=== PATIENT | female | born 1980 | race Caucasian/White ===

== ENCOUNTER 2017-07-05 14:53 | Emergency (ER) | payer OTHER | END 2017-07-05 19:07 | disposition left against medical advice (07) | LOC: EME 14:53 | DX: Z00.8 Encounter for other general examination (principal); Z53.21 Procedure and treatment not carried out due to patient leaving prior to being seen by health care provider ==

== ENCOUNTER 2017-07-14 13:34 | Emergency (ER) | payer OTHER ==
[~2017-07-14] VITALS: Ht 162.6 cm; Wt 66.4 kg
[2017-07-14 14:19] LABS: HEMATOCRIT 38.2 % (36.0-46.0); MCH 32.2 PG (29.0-34.0); MCV 97.7 FL (83-99); MEAN PLAT.VOLUME 11.8 uM^3 (9.5-12.4); PLATELET COUNT 193 K/uL (156-360); RBC DIS.WIDTH-CV 13.3 % (11.8-14.6); RBC DIS.WIDTH-SD 47.6 % (39-53); RED BLOOD COUNT 3.91 M/uL (3.80-5.20); WHITE BLOOD COUNT 8.8 K/uL (4.1-10.2)
[2017-07-14 14:31] LABS: CHLORIDE 109 mEq/L (99-109); POTASSIUM 5.5 mEq/L (3.7-5.4); SODIUM 138 mEq/L (136-147)
[2017-07-14 14:33] LABS: GLUCOSE 189 mg/dL (70-99)
[2017-07-14 14:35] LABS: ANION GAP 15 MEQ/L (2-14)
[2017-07-14 14:37] LABS: GFR ESTIMATE (CALCULATED) 10 mL/min/
[2017-07-14 14:38] LABS: UREA NITROGEN (BUN) 43 mg/dL (9-23)
[2017-07-14 14:45] LABS: QUANTITATIVE HCG < 4.0 MIU/ML
[2017-07-14 16:33] VITALS: BP 180/95
[2017-07-15 09:28] LABS: AHBS INDEX 2.53; HEPATITIS B SURFACE ANTIBODY Nonreactive
== END 2017-07-14 16:36 | disposition home or self-care (01) ==
LOC: EME 13:34
PROVIDERS: Internal Medicine
DX: I12.9 Hypertensive chronic kidney disease with stage 1 through stage 4 chronic kidney disease, or unspecified chronic kidney disease (principal); N18.9 Chronic kidney disease, unspecified; Z99.2 Dependence on renal dialysis; I25.2 Old myocardial infarction; F32.9 Major depressive disorder, single episode, unspecified; F17.200 Nicotine dependence, unspecified, uncomplicated
CPT/HCPCS: 80048; 84702; 85027; 86706; 87340; 99281; 99282

== ENCOUNTER 2017-09-02 14:59 | Day surgery (SDC) | payer OTHER ==
[2017-09-02] MEDS ORDERED: LEVEMIR FL100 UNIT/1 SC (15:29)
[2017-09-02] MEDS ORDERED: NOVOLOG PE100 UNITS/ SC (15:59)
[2017-09-02] MEDS ORDERED: LABETALOL HCL200 MG PO (16:00)
[2017-09-02] MEDS ORDERED: NIFEDIPINE ER90 MG PO (16:00)
[2017-09-02] MEDS ORDERED: HEARTBURN RELIE75 MG PO (16:02)
[2017-09-02 16:07] LABS: POINT-OF-CARE METER ID UU13113696
[2017-09-02 17:16] LABS: METH RESISTANT S AUREUS PCR NEGATIVE (NEGATIVE)
[2017-09-02 17:21] LABS: PROBE CHECK PASS; SPECIMEN PROCESSING CONTROL PASS
== END 2017-09-02 19:30 | disposition home or self-care (01) ==
LOC: CATH 14:59
PROVIDERS: Surgery
DX: T82.868A Thrombosis due to vascular prosthetic devices, implants and grafts, initial encounter (principal); N18.6 End stage renal disease; Z99.2 Dependence on renal dialysis
CPT/HCPCS: 82948; 87641; C1725; C1757; C1769; C1894; C2628; J0690; J1644; J2250; J3010; S0020

== ENCOUNTER 2017-10-02 10:51 | Day surgery (SDC) | payer OTHER ==
[~2017-10-02 10:51] MED LIST: HEARTBURN RELIE75 MG PO; LABETALOL HCL200 MG PO; LEVEMIR FL100 UNIT/1 SC; NIFEDIPINE ER90 MG PO; NOVOLOG PE100 UNITS/ SC
[2017-10-02 12:21] VITALS: BP 115/67
[2017-10-02 12:27] LABS: BASOPHIL (%) 0.8 % (0-1); BASOPHIL COUNT 0.1 K/uL (0-0.1); EOSINOPHIL (%) 2.2 % (0-5); EOSINOPHIL COUNT 0.2 K/uL (0-0.3); HEMATOCRIT 34.6 % (36.0-46.0); HEMOGLOBIN 11.5 G/DL (11.9-15.5); IMMATURE GRANULOCYTE (%) 0.8 % (0.0-0.7); LYMPHOCYTE (%) 16.4 % (15-42); LYMPHOCYTE COUNT 1.8 K/uL (1.0-2.8); MCH 32.3 PG (29.0-34.0); MCHC 33.2 G/DL (30.0-36.0); MCV 97.2 FL (83-99); MONOCYTE (%) 5.1 % (3-12); MONOCYTE COUNT 0.5 K/uL (0-0.8); NEUTROPHIL (%) 74.7 % (45-76); PLATELET COUNT 216 K/uL (156-360); RBC DIS.WIDTH-CV 12.9 % (11.8-14.6); RBC DIS.WIDTH-SD 46.3 % (39-53); RED BLOOD COUNT 3.56 M/uL (3.80-5.20); WHITE BLOOD COUNT 10.7 K/uL (4.1-10.2)
[2017-10-02 12:49] LABS: CHLORIDE 96 MEQ/L (99-109); CREATININE 6.7 MG/DL (0.6-1.3); GFR ESTIMATE (CALCULATED) 7 mL/min/; GLUCOSE 223 mg/dL (70-99); POTASSIUM 4.8 MEQ/L (3.7-5.4); SODIUM 134 MEQ/L (136-147); UREA NITROGEN (BUN) 57 mg/dL (9-23)
[2017-10-02 13:18] LABS: QUANTITATIVE HCG < 4.0 MIU/ML
[2017-10-02] MEDS ORDERED: NORCO 5/3251 TABLET PO (18:44)
[2017-10-02 20:15] VITALS: BP 145/68
[2017-10-03 00:10] VITALS: BP 154/78
[2017-10-03 05:18] VITALS: BP 121/57
[2017-10-03 07:15] VITALS: BP 135/65
[2017-10-03 11:10] VITALS: BP 144/64
== END 2017-10-03 13:13 | disposition home or self-care (01) ==
LOC: SDC 10:51 → 2SOUTH 11:00 → SDC 11:00 → ENRESERV 11:37 → 2SOUTH 11:40 → 2EASTP 11:40
PROVIDERS: Surgery
PROC: 057Y3DZ Dilation of Upper Vein with Intraluminal Device, Percutaneous Approach (ICD-10-PCS; principal; 2017-10-02)
PROC: 05HY33Z Insertion of Infusion Device into Upper Vein, Percutaneous Approach (ICD-10-PCS; principal; 2017-10-02)
PROC: 05CY0ZZ Extirpation of Matter from Upper Vein, Open Approach (ICD-10-PCS; principal; 2017-10-02)
PROC: B51W1ZZ Fluoroscopy of Dialysis Shunt/Fistula using Low Osmolar Contrast (ICD-10-PCS; principal; 2017-10-02)
PROC: 3E03317 Introduction of Other Thrombolytic into Peripheral Vein, Percutaneous Approach (ICD-10-PCS; principal; 2017-10-02)
DX: T82.868A Thrombosis due to vascular prosthetic devices, implants and grafts, initial encounter (principal); I12.0 Hypertensive chronic kidney disease with stage 5 chronic kidney disease or end stage renal disease; E11.22 Type 2 diabetes mellitus with diabetic chronic kidney disease; F17.200 Nicotine dependence, unspecified, uncomplicated; N18.6 End stage renal disease; Z99.2 Dependence on renal dialysis; Z79.4 Long term (current) use of insulin
CPT/HCPCS: 80048; 82948; 84702; 85025; C1725; C1757; C1769; C1894; C2628; G0378; J0690; J1170; J1644; J2250; J2405; J3010; J7040

== ENCOUNTER 2017-10-12 10:24 | Inpatient (IN) | payer OTHER ==
[~2017-10-12] VITALS: Ht 162.6 cm; Wt 65.8 kg
[~2017-10-12 10:24] MED LIST changes: +NORCO 5/3251 TABLET PO
[2017-10-12] MEDS ORDERED: PERCOCET 5/31 TABLET PO (19:24)
[2017-10-13] VITALS (16 sets, daily range): BP systolic 101–244; BP diastolic 53–110
[2017-10-13 09:27] LABS: HEMATOCRIT 35.7 % (36.0-46.0); HEMOGLOBIN 11.8 G/DL (11.9-15.5); MCH 32.6 PG (29.0-34.0); MCHC 33.1 G/DL (30.0-36.0); MCV 98.6 FL (83-99); PLATELET COUNT 261 K/uL (156-360); RBC DIS.WIDTH-SD 46.9 % (39-53); RED BLOOD COUNT 3.62 M/uL (3.80-5.20); WHITE BLOOD COUNT 17.1 K/uL (4.1-10.2)
[2017-10-13 09:36] LABS: ALBUMIN 4.4 g/dL (3.2-4.8); CHLORIDE 105 mEq/L (99-109); SODIUM 137 mEq/L (136-147)
[2017-10-13 09:39] LABS: GLUCOSE 229 mg/dL (70-99)
[2017-10-13 09:41] LABS: TOTAL BILIRUBIN 0.4 mg/dL (0.0-1.0)
[2017-10-13 09:42] LABS: ALKALINE PHOSPHATASE 104 IU/L (3-129); GFR ESTIMATE (CALCULATED) 7 mL/min/
[2017-10-13 09:43] LABS: UREA NITROGEN (BUN) 48 mg/dL (9-23)
[2017-10-13 09:44] LABS: AST (GOT) 13 IU/L (2-34)
[2017-10-13 09:45] LABS: ALT (GPT) < 3 IU/L (3-49)
[2017-10-13 09:49] LABS: TROP-I INTERPRETATION NEGATIVE; TROPONIN-I 0.02 ng/mL (0.0-0.30)
[2017-10-14 03:25] VITALS: BP 93/53
[2017-10-14 07:30] VITALS: BP 95/86
[2017-10-14 11:05] VITALS: BP 92/53
[2017-10-14 15:38] LABS: HEMATOCRIT 37.9 % (36.0-46.0); HEMOGLOBIN 12.2 G/DL (11.9-15.5); MCH 31.8 PG (29.0-34.0); MCHC 32.2 G/DL (30.0-36.0); MCV 98.7 FL (83-99); PLATELET COUNT 298 K/uL (156-360); RBC DIS.WIDTH-SD 46.6 % (39-53); RED BLOOD COUNT 3.84 M/uL (3.80-5.20); WHITE BLOOD COUNT 10.3 K/uL (4.1-10.2)
[2017-10-14 15:54] VITALS: BP 121/58
[2017-10-14 21:43] LABS: APPEARANCE CLOUDY ((CLEAR)); BILIRUBIN NEGATIVE; BLOOD SMALL; COLOR AMBER ((YELLOW)); GLUCOSE (STRIP) >=500; KETONES NEGATIVE; LEUKOCYTES SMALL; NITRITE NEGATIVE; PROTEIN (STRIP) 100; SPECIFIC GRAVITY 1.021 (1.000-1.030); UROBILINOGEN 0.2 MG/DL (0.2-1.0)
[2017-10-14 22:19] LABS: EPITHELIAL CELLS 3+ /HPF; MUCUS NONE SEEN /LPF; RED BLOOD CELLS 0-5 /HPF (0-5)
[2017-10-14 22:20] LABS: BACTERIA 2+ /HPF; HYALINE CASTS 0-5 /LPF; UCUL ADDED? YES
[2017-10-15 00:07] VITALS: BP 95/55
[2017-10-15 07:02] LABS: BASOPHIL (%) 0.7 % (0-1); BASOPHIL COUNT 0.1 K/uL (0-0.1); EOSINOPHIL COUNT 0.2 K/uL (0-0.3); HEMOGLOBIN 11.5 G/DL (11.9-15.5); IMMATURE GRANULOCYTE (%) 0.4 % (0.0-0.7); LYMPHOCYTE (%) 24.2 % (15-42); LYMPHOCYTE COUNT 2.8 K/uL (1.0-2.8); MCH 31.5 PG (29.0-34.0); MCHC 31.9 G/DL (30.0-36.0); MCV 98.6 FL (83-99); MONOCYTE (%) 5.8 % (3-12); MONOCYTE COUNT 0.7 K/uL (0-0.8); NEUTROPHIL (%) 66.9 % (45-76); NEUTROPHIL COUNT 7.8 K/uL (1.8-6.4); PLATELET COUNT 248 K/uL (156-360); RBC DIS.WIDTH-CV 12.4 % (11.8-14.6); RBC DIS.WIDTH-SD 45.8 % (39-53); RED BLOOD COUNT 3.65 M/uL (3.80-5.20); WHITE BLOOD COUNT 11.7 K/uL (4.1-10.2)
[2017-10-15 07:15] VITALS: BP 137/63
[2017-10-15 07:33] LABS: CHLORIDE 92 MEQ/L (99-109); GFR ESTIMATE (CALCULATED) 7 mL/min/; MAGNESIUM 2.1 mg/dl (1.3-2.7); PHOSPHORUS 6.3 mg/dL (2.5-4.9); POTASSIUM 4.4 MEQ/L (3.7-5.4); SODIUM 136 MEQ/L (136-147); UREA NITROGEN (BUN) 39 mg/dL (9-23)
[2017-10-15 07:41] LABS: GLUCOSE 111 mg/dL (70-99)
== END 2017-10-15 13:50 | disposition home or self-care (01) | DRG 252 ==
LOC: SDC 10:24 → 2EAST 18:55 → ENRESERV 23:36 → 2EAST 10-13 21:38
PROVIDERS: Internal Medicine; Internal Medicine Nephrology; Physician Assistant; Surgery
DX: I16.0 Hypertensive urgency (principal); I12.0 Hypertensive chronic kidney disease with stage 5 chronic kidney disease or end stage renal disease; N18.6 End stage renal disease; T82.868A Thrombosis due to vascular prosthetic devices, implants and grafts, initial encounter; Y83.2 Surgical operation with anastomosis, bypass or graft as the cause of abnormal reaction of the patient, or of later complication, without mention of misadventure at the time of the procedure; I95.9 Hypotension, unspecified; E11.22 Type 2 diabetes mellitus with diabetic chronic kidney disease; E87.2 Acidosis; E83.39 Other disorders of phosphorus metabolism; N25.81 Secondary hyperparathyroidism of renal origin; I25.10 Atherosclerotic heart disease of native coronary artery without angina pectoris; E78.5 Hyperlipidemia, unspecified; I25.2 Old myocardial infarction; Z87.891 Personal history of nicotine dependence; Z91.15 Patient's noncompliance with renal dialysis; Z91.14 Patient's other noncompliance with medication regimen; Z99.2 Dependence on renal dialysis
CPT/HCPCS: 80048; 80053; 81003; 82948; 83735; 84100; 84132 91; 84484; 85025; 85027; 87040; 87086; 93005; G0378; J0131; J0692; J1170; J1644; J1815; J2405; J2550; J2765; J3010; J3370; J7040; S0020

== ENCOUNTER 2017-10-31 13:45 | Day surgery (SDC) | payer OTHER ==
[~2017-10-31] VITALS: Ht 162.6 cm; Wt 65.8 kg
[~2017-10-31 13:45] MED LIST changes: +PERCOCET 5/31 TABLET PO; +RENVELA800 MG PO
[2017-10-31 14:17] VITALS: BP 119/57
[2017-10-31 14:31] LABS: HEMATOCRIT 33.8 % (36.0-46.0); HEMOGLOBIN 11.1 G/DL (11.9-15.5); MCV 100.6 FL (83-99)
[2017-10-31 14:49] LABS: CHLORIDE 96 MEQ/L (99-109); POTASSIUM 4.7 MEQ/L (3.7-5.4); SODIUM 137 MEQ/L (136-147)
[2017-10-31 14:54] LABS: CREATININE 6.6 MG/DL (0.6-1.3); GFR ESTIMATE (CALCULATED) 8 mL/min/; GLUCOSE 204 mg/dL (70-99); UREA NITROGEN (BUN) 38 mg/dL (9-23)
[2017-10-31 20:02] VITALS: BP 127/60
== END 2017-10-31 20:25 | disposition home or self-care (01) ==
LOC: SDC 13:45
PROVIDERS: Surgery
DX: T82.868A Thrombosis due to vascular prosthetic devices, implants and grafts, initial encounter (principal); I12.0 Hypertensive chronic kidney disease with stage 5 chronic kidney disease or end stage renal disease; N18.6 End stage renal disease; Z99.2 Dependence on renal dialysis; Z91.15 Patient's noncompliance with renal dialysis; E11.22 Type 2 diabetes mellitus with diabetic chronic kidney disease; I25.10 Atherosclerotic heart disease of native coronary artery without angina pectoris; I25.2 Old myocardial infarction; E78.5 Hyperlipidemia, unspecified; F32.9 Major depressive disorder, single episode, unspecified; E20.9 Hypoparathyroidism, unspecified; F17.200 Nicotine dependence, unspecified, uncomplicated
CPT/HCPCS: 80048; 82948; 84132; 85014; 85018; 85027; 87641; C1725; C1757; C1769; C1874; C1894; C2628; J0690; J1644; J2250; J2405; J2765; J3010; S0020